=== PATIENT | male | born 1945 | race Caucasian/White ===

== ENCOUNTER 2018-05-04 19:39 | Emergency (ER) | payer OTHER ==
[~2018-05-04] VITALS: Ht 170.2 cm; Wt 72.6 kg
[2018-05-04 20:00] LABS: BASOPHILS % (AUTO) 0.2 % (0.0-2.0); EOSINOPHILS % (AUTO) 1.6 % (1.0-6.0); HEMATOCRIT 44.1 % (41-53); HEMOGLOBIN 14.6 g/dL (13.5-17.5); LYMPHOCYTES # (AUTO) 1.8 K/uL (1.0-4.8); LYMPHOCYTES % (AUTO) 17.8 % (22.0-44.0); MEAN CORPUSCULAR HEMOGLOBIN 28.6 pg (26.0-34.0); MEAN CORPUSCULAR HGB CONC 33.1 G/dL (31.0-37.0); MEAN CORPUSCULAR VOLUME 86 fL (80-100); MONOCYTES # (AUTO) 0.8 K/uL (0.1-1.0); MONOCYTES % (AUTO) 8.3 % (2.0-9.0); NEUTROPHILS # (AUTO) 7.3 K/uL (1.8-7.7); NEUTROPHILS % (AUTO) 72.1 % (40.0-70.0); PLATELET COUNT (AUTO) 233 K/uL (150-450); RED BLOOD CELL COUNT(AUTO) 5.12 MIL/uL (4.50-5.90); RED CELL DISTRIBUTION WIDTH 15.8 % (11.5-14.5)
[2018-05-04] MEDS ORDERED: IOVERSOL 320 MG/ML 100 ML VIAL ONE (20:07)
[2018-05-04] MEDS ORDERED: SODIUM CHLORIDE 0.9% 100 ML ONE (20:07)
[2018-05-04 20:11] LABS: CALCIUM, TOTAL 9.7 mg/dL (8.8-10.5); CREATININE 1.52 mg/dL (0.60-1.30); POTASSIUM 5.1 mmol/L (3.5-5.1)
[2018-05-04 20:12] LABS: PROTHROMBIN TIME 10.4 SEC (9.4-11.6)
[2018-05-04 20:16] LABS: ALBUMIN 3.2 g/dL (3.4-5.0); BILIRUBIN,TOTAL 0.4 mg/dL (0.1-1.0); TOTAL PROTEIN, SERUM 8.2 g/dL (6.4-8.2)
[2018-05-04] MEDS ORDERED: GLIP5TAB11 PO (20:45)
[2018-05-04] MEDS ORDERED: LOSA25TA2 PO (20:45)
[2018-05-04] MEDS ORDERED: CARV6.2534 PO (20:45)
[2018-05-04] MEDS ORDERED: BISO5TAB13 PO (20:45)
[2018-05-04] MEDS ORDERED: METF-444 PO (20:45)
[2018-05-04] MEDS ORDERED: FURO80TA3 PO (20:45)
[2018-05-04] MEDS ORDERED: ATOR40TA71 PO (20:45)
[2018-05-04] MEDS ORDERED: FINA5TAB41 PO (20:45)
[2018-05-04] MEDS ORDERED: FAMO20TA8 PO (20:45)
[2018-05-04] MEDS ORDERED: SODIUM CHLORIDE 0.9% 1,000 ML IV ONE (21:00)
[2018-05-04] MEDS ORDERED: ASPIRIN 325 MG EC TABLET PO ONE (21:00)
[2018-05-05 02:00] VITALS: BP 118/70
== END 2018-05-05 02:30 | disposition short-term general hospital (02) ==
LOC: EMS 19:40 → EDBD 19:40 → EMS 05-05 02:30
DX: G45.9 Transient cerebral ischemic attack, unspecified (principal); E11.9 Type 2 diabetes mellitus without complications; F17.200 Nicotine dependence, unspecified, uncomplicated; Z86.73 Personal history of transient ischemic attack (TIA), and cerebral infarction without residual deficits; Z79.84 Long term (current) use of oral hypoglycemic drugs
CPT/HCPCS: 36415; 70450; 70496; 71045; 80053; 84484; 85025; 85610; 85730; 86850; 86900; 86901; 93005; 99291; J7030; J7050; Q9967